=== PATIENT | male | born 1955 | race Caucasian/White ===

== ENCOUNTER 2018-06-07 16:10 | Emergency (ER) | payer BC, OTHER ==
[2018-06-07 16:46] VITALS: BP 148/78
--- NOTE | 2018-06-07 17:11 | UC ---
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 He presents here with concerns about his port. He had an injection trabectedin on May 25 and . About 1 week after his injection he noticed redness and swelling around the port site. He was quite tender there. He states that the redness and pain have been decreasing since their onset. He denies any fever or chills. He denies any lightheadedness or near syncope. The port has been in since 2014. - History of Current Complaint Chief Complaint: UCSkin Time Seen by Provider: 06/07/18 16:48 Stated Complaint: RIGHT SHOULDER PAIN Hx Obtained From: Patient Onset/Duration: Gradual Onset, Lasting Weeks - about one Timing: Constant Onset Severity: Moderate Current Severity: Mild Pain Intensity: 1 Pain Scale Used: 0-10 Numeric Character: Swelling, Redness, Painful Aggravating Factor(s): Touch Alleviating Factor(s): Cold Associated Signs & Symptoms: Positive: Tenderness - Allergy/Home Medications Allergies/Adverse Reactions: Allergies Allergy/AdvReac Type Severity Reaction Status Date / Time codeine Allergy Vomiting Verified 06/07/18 16:32 epinephrine Allergy See Comment Verified 06/07/18 16:32 seasonal allergies Allergy Eyes Uncoded 06/07/18 16:32 Itchy/Swollen/Red/Watery Home Medications: Home Medications Acetaminophen [Acetaminophen Extra Strength] 500 mg PO Q6H PRN 06/07/18 [ History Confirmed 06/07/18] Krill/Purdys-3/Dha/Epa/Lipids [Krill Oil 300 mg Softgel] 1 each PO BID 06/07/18 [ History Confirmed 06/07/18] Trabectedin* [Yondelis] 1 mg IV ONCE 06/07/18 [History Confirmed 06/07/18] Ubidecarenone [Co Q10] 200 mg PO BID 06/07/18 [History Confirmed 06/07/18] Review of Systems Constitutional: Negative Skin: Negative Eyes: Negative ENT: Negative Respiratory: Negative Cardiovascular: Negative Gastrointestinal: Negative Genitourinary: Negative Motor: Negative Neurovascular: Negative Musculoskeletal: Negative Neurological: Negative Psychological: Negative Is Patient Immunocompromised?: No All Other Systems Reviewed And Are Negative: Yes PMH/Surg Hx/FS Hx/Imm Hx Previously Healthy: Yes Cancer History: Other Other Cancer History: mixoid liposacroma - Surgical History Surgical History: Yes Surgery Procedure, Year, and Place: Right Foot Reconstruction - screws/skin grafts, 1991, [facility]. Tonsillectomy, 1960, [facility]. port placement. L upper thigh - Family History Known Family History: Positive: Hypertension - Social History Alcohol Use: Rare Substance Use Type: None Smoking Status (MU): Never Smoked Tobacco - Immunization History Most Recent Influenza Vaccination: current Most Recent Tetanus Shot: 04/21/2013 Physical Exam Triage Information Reviewed: Yes Appearance: Well-Appearing, No Pain Distress, Well-Nourished Vital Signs: Initial Vital Signs Temp 99.2 F 06/07/18 16:36 Pulse 71 06/07/18 16:36 Resp 16 06/07/18 16:36 BP 148/78 06/07/18 16:36 Pulse Ox 98 06/07/18 16:36 Eyes: Positive: Conjunctiva Clear ENT: Positive: Pharynx normal. Negative: Nasal drainage, TMs normal, Trismus, Muffled voice, Hoarse voice Neck: Positive: Supple, Nontender, No Lymphadenopathy Respiratory: Positive: Lungs clear, Normal breath sounds, No respiratory distress, No accessory muscle use Cardiovascular: Positive: RRR, No Murmur Abdomen Description: Positive: Nontender, No Organomegaly. Negative: CVA Tenderness (R), CVA Tenderness (L) Neurological: Positive: Alert Psychological Exam: Normal Skin Exam: Other - see image Course/Dx - Course Course Of Treatment: [facility] ) called at 5: [phone]. [phone]. Spoke to adoption worker RN- to ER for evaluation. D/W Angeline Gleason NP accepts - Diagnoses Provider Diagnoses: Port infection Discharge - Sign-Out/Discharge Documenting (check all that apply): Patient Departure - Discharge Plan Condition: Stable Disposition: TRANS HIGHER LVL OF CARE FAC Referrals: Mervin Coronel MD [Primary Care Provider] - - Billing Disposition and Condition Condition: STABLE Disposition: Trans Higher Lvl of Care Fac Images Front/Back of Body, Lg (Tyrrell): 1 - port 2 - 5x10 cm area of redness/slight induration/slightly tender/no fluctuance
== END 2018-06-07 18:24 | disposition short-term general hospital (02) ==
LOC: UCCORT 16:10
DX: T80.212A Local infection due to central venous catheter, initial encounter (principal); Z88.5 Allergy status to narcotic agent; Z88.8 Allergy status to other drugs, medicaments and biological substances; C49.9 Malignant neoplasm of connective and soft tissue, unspecified
CPT/HCPCS: 99202; G0463

== ENCOUNTER 2019-09-24 16:23 | Emergency (ER) | payer OTHER ==
[2019-09-24 16:46] VITALS: BP 120/84
--- NOTE | 2019-09-24 16:57 | UC ---
Throat Pain/Nasal Brain HPI - HPI Summary HPI Summary: 64-year-old male comes in with a chief complaint of sinus pressure and green rhinorrhea. Having symptoms for about a week. No fevers measured. Some postnasal drip. No complaint of any ear pain or shortness of breath or chest congestion. Has been using a vaporizer which does help some with the symptoms. - History of Current Complaint Chief Complaint: UCGeneralIllness Stated Complaint: SINUS COMPLAINT Time Seen by Provider: 09/24/19 16:31 Pain Intensity: 0 - Allergies/Home Medications Allergies/Adverse Reactions: Allergies Allergy/AdvReac Type Severity Reaction Status Date / Time codeine Allergy Vomiting Verified 09/24/19 16:36 epinephrine Allergy See Comment Verified 09/24/19 16:36 Iodinated Contrast Media Allergy redness Verified 09/24/19 16:38 and hot sensation iodine Allergy Rash Verified 09/24/19 16:38 seasonal allergies Allergy Eyes Uncoded 09/24/19 16:36 Itchy/Swollen/Red/Watery Home Medications: Home Medications Eribulin* [Halaven*] 1 mg IV SEE INSTRUCTIONS 09/24/19 [History Confirmed ] PMH/Surg Hx/FS Hx/Imm Hx Previously Healthy: Yes - abdominal sarcoma, on chemotherapy. - Surgical History Surgical History: Yes Surgery Procedure, Year, and Place: Right Foot Reconstruction - screws/skin grafts, 1991, [facility]. Tonsillectomy, 1960, [facility]. port placement. L upper thigh sx for cancer. Hernia repair--1994 - Family History Known Family History: Positive: Hypertension - Social History Alcohol Use: Rare Substance Use Type: None Smoking Status (MU): Never Smoked Tobacco - Immunization History Most Recent Influenza Vaccination: current Most Recent Tetanus Shot: 04/21/2013 Review of Systems All Other Systems Reviewed And Are Negative: Yes Constitutional: Positive: Other - See history present illness Skin: Positive: Negative Eyes: Positive: Negative ENT: Positive: Nasal Discharge, Sinus Congestion, Sinus Pain/Tenderness Respiratory: Positive: Negative Cardiovascular: Positive: Negative Gastrointestinal: Positive: Negative Motor: Positive: Negative Neurovascular: Positive: Negative Musculoskeletal: Positive: Negative Neurological: Positive: Negative Psychological: Positive: Negative Is Patient Immunocompromised?: Yes - on chemotherapy session October 02, 2019 Physical Exam Triage Information Reviewed: Yes Appearance: Well-Appearing, No Pain Distress, Well-Nourished Vital Signs: Initial Vital Signs Temp 98.2 F 09/24/19 16:43 Pulse 90 09/24/19 16:43 Resp 24 09/24/19 16:43 BP 120/84 09/24/19 16:43 Pulse Ox 97 09/24/19 16:43 Vital Signs Reviewed: Yes Eye Exam: Normal Eyes: Positive: Conjunctiva Clear ENT: Positive: Pharynx normal, Nasal congestion, TMs normal Neck: Positive: Supple Respiratory: Positive: Lungs clear, Normal breath sounds, No respiratory distress Cardiovascular: Positive: RRR Musculoskeletal: Positive: Strength Intact, ROM Intact Neurological: Positive: Alert, Muscle Tone Normal Psychological: Positive: Age Appropriate Behavior Skin Exam: Normal Throat Pain/Nasal Course/Dx - Course Course Of Treatment: DISCUSSED VIRAL VERSES BACTERIAL INFECTIONS AND THE ROLE OF ANTIBIOTICS. THE PATIENT PREFERS TO BE ON ANTIBIOTICS AT THIS TIME. - Differential Dx/Diagnosis Provider Diagnosis: Sinusitis Discharge ED - Sign-Out/Discharge Documenting (check all that apply): Patient Departure All imaging exams completed and their final reports reviewed: No Studies - Discharge Plan Condition: Stable Disposition: HOME Prescriptions: Amoxicillin/Clavulanate TAB* [Augmentin TAB 875*] 875 mg PO BID #20 tab Patient Education Materials: Sinusitis (ED) Referrals: Mervin Coronel MD [Primary Care Provider] - Additional Instructions: FOLLOW UP WITH YOUR DOCTOR IF NOT COMPLETELY IMPROVED. GET REEVALUATED SOONER IF NOT IMPROVING OR WORSE OR ANY QUESTIONS OR CONCERNS. - Billing Disposition and Condition Condition: STABLE Disposition: Home
--- OUTSIDE RECORDS SUMMARY | 2019-09-25 16:28 | XMS REPORT | Continuity of Care Document ---
:1955 External Reference #:[id number] Author Name Mervin Coronel (transmitted by agent of provider Laurie Whitehead) Address [address] [place] [address] Care Team Providers Name Role Phone Mervin Coronel MD - Internal Medicine Care Team Information Manager Billing Problems Description No Information Available Social History Type Date Description Comments Sex Unknown ETOH Use rarly uses Tobacco Use Start: Unknown Patient has never smoked Allergies, Adverse Reactions, Alerts Active Allergies Reaction Severity Comments Date Codeine GI distress 02/28/2018 Heparin 02/28/2018 Iodine Hives, Itching 12/18/2018 Medications Active Medications SIG Qnty Indications Ordering Provider Date Sildenafil Citrate 1 as directed 1 18tabs N52.9 Mervin Coronel 05/22/2019 hour before 100mg Tablets Patanol 2 drop eyes every 5ml Mervin Coronel 02/28/2018 0.1% Solution day as needed Azelastine HCL 2 sprays each 90ml Mervin Coronel 02/28/2018 (Nasal) nostril daily 0.15% Solution Vitamin D3 daily otc Unknown 2000Unit Capsules Coenzyme Q10 Unknown 100mg Capsules Vitamin C Unknown 1000mg Tablets Saw [place] daily Unknown 450mg Capsules Calcium 600 + Unknown Minerals [id number] Tablets Narciso Red Krill Oil 2 a day Unknown Immunizations Description No Information Available Vital Signs Date Vital Result Comment 08/29/2019 11:54am BP Systolic 142 mmHg BP Diastolic 90 mmHg Heart Rate 84 /min Respiratory Rate 16 /min Weight 216.00 lb 05/22/2019 10:29am BP Systolic 130 mmHg BP Diastolic 82 mmHg Heart Rate 68 /min Height 72 inches 6'0" Weight 216.00 lb BMI (Body Mass Index) 29.3 kg/m2 O2 % dC Oximetry 97 % Results Test Acquired Date Facility Test Result H/L Range Note General Health 08/13/2019 [facility] TSH 1.32 mIU/L Normal 0.40- 4.50 1 Panel [facility] [address] [place] [address] [phone] T4, Free 1.1 ng/dL Normal 0.8-1.8 CBC (Includes 08/13/2019 [facility] White 4.1 Thousand/uL Normal 3.8-10.8 Diff/PLT) 6 [facility] [place] [address] Count Red Blood Cell Count 4.77 Million/uL Normal 4.20-5.80 Hemoglobin 14.8 g/dL Normal 13.2-17.1 Hematocrit 45.0 % Normal 38.5-50.0 MCV 94.3 fL Normal 80.0-100.0 MCH 31.0 pg Normal 27.0-33.0 MCHC 32.9 g/dL Normal 32.0-36.0 RDW 12.3 % Normal 11.0-15.0 Platelet Count 198 Thousand/uL Normal 140-400 MPV 8.1 fL Normal 7.5-12.5 Absolute Neutrophils 2583 cells/uL Normal 0476-6944 Absolute Lymphocytes 1140 cells/uL Normal 850-3900 Absolute Monocytes 299 cells/uL Normal 200-950 Absolute Eosinophils 49 cells/uL Normal 15-500 Absolute Basophils 29 cells/uL Normal 0-200 Neutrophils 63 % Normal 38-80 Lymphocytes 27.8 % Normal 15-49 Monocytes 7.3 % Normal 0-13 Eosinophils 1.2 % Normal 0-8 Basophils 0.7 % Normal 0-2 Comprehensive Metabolic 08/13/2019 [facility] Glucose 90 mg/dL Normal 65-99 2 Panel [address] [place] [address] [phone] Urea Nitrogen (BUN) 17 mg/dL Normal 7-25 Creatinine 0.91 mg/dL Normal 0.70-1.25 3 eGFR Non-Afr. Lithuanian 89 mL/min/1.73m2 Normal > Or = 60 eGFR 103 mL/min/1.73m2 Normal > Or = 60 BUN/Creatinine Ratio NOT APPLICABLE (calc) 6-22 Sodium 139 mmol/L Normal 135-146 Potassium 4.2 mmol/L Normal 3.5-5.3 Chloride 104 mmol/L Normal 98-110 Carbon Dioxide 31 mmol/L Normal 20-32 Calcium 9.2 mg/dL Normal 8.6-10.3 Protein, Total 6.2 g/dL Normal 6.1-8.1 Albumin 4.1 g/dL Normal 3.6-5.1 Globulin 2.1 g/dL(calc) Normal 1.9-3.7 Albumin/Globulin Ratio 2.0 (calc) Normal 1.0-2.5 Bilirubin, Total 0.6 mg/dL Normal 0.2-1.2 Alkaline Phosphatase 55 U/L Normal 40-115 Ast 9 U/L Low 10-35 Alt 14 U/L Normal 9-46 Laboratory test 08/13/2019 [facility] Enhanced PDF SEE IMAGE finding [address] [place] [address] [id number] [phone] General Health 05/03/2019 Old DO Not Use [facility] TSH 1.34 mIU/L 0.40- 4 4 Panel [facility] [address] [place] [address] [phone] T4,Free 1.1 ng/dL 0.8-1.8 CBC W/ Diff & PLT 05/03/2019 Old DO Not Use [facility] WBC 4.9 thous/L 3.8-10.[address] [place] [address] [phone] RBC 4.55 mill/L 4.20-5.80 Hemoglobin 14.5 g/dL 13.2-17.1 Hematocrit 42.7 % 38.5-50.0 MCV 93.8 FL 80.0-100.0 MCH 31.9 pg 27.0-33.0 MCHC 34.0 g/dL 32.0-36.0 RDW 13.1 % 11.0-15.0 Platelet Count 177 thous/L 140-400 MPV 8.1 FL 7.5-12.5 Neutrophils,Absolute 3170 cells/L [phone] Bands,Absolute PENDING Metamyelocytes,Absolute PENDING Myelocytes,Absolute PENDING Promyelocytes,Absolute PENDING Lymphocytes,Absolute 1310 cells/L 850-3900 Monocytes,Absolute 370 cells/L 200-950 Eosinophils,Absolute 20 cells/L 15-500 Basophils,Absolute 20 cells/L 0-200 Blast Cells,Absolute PENDING Nucleated RBC,Absolute PENDING Total Neutrophils,% 64.8 % 40-75 Bands,% PENDING Metamyelocytes,% PENDING Myelocytes,% PENDING Promyelocytes,% PENDING Total Lymphocytes,% 26.8 % 12-47 Reactive Lymphocytes PENDING Monocytes,% 7.6 % 4-12 Eosinophils,% 0.4 % 0-4 Basophils,% 0.4 % 0-1 5 Blasts,% PENDING Nucleated RBC PENDING Comment PENDING CMP W/GFR 05/03/2019 Old DO Not Use [facility] Sodium 140 mmol/L 135-[address] [place] [address] [phone] Potassium 3.8 mmol/L 3.5-5.3 Chloride 106 mmol/L 98-110 Carbon Dioxide 28 mmol/L 20-32 6 Calcium 9.3 mg/dL 8.6-10.3 Alkaline Phosphatase 47 U/L 40-115 Ast 8 U/L Low 10-35 Alt 11 U/L 9-46 Bilirubin,Total 0.8 mg/dL 0.2-1.2 Glucose 92 mg/dL 65-99 7 Urea Nitrogen (BUN) 17 mg/dL 7-25 Creatinine 0.94 mg/dL 0.70-1.25 8 BUN/Creatinine Ratio 17.6 6-22 Protein,Total 6.4 g/dL 6.1-8.1 Albumin 4.2 g/dL 3.6-5.1 Globulin,Calculated 2.2 g/dL 1.9-3.7 A/G Ratio 1.9 1.0-2.5 Egfr Non-Afr. Lithuanian 85 ML/MIN/1.73M2 > Or = 60 Egfr 99 ML/MIN/1.73M2 > Or = 60 Lipid Panel 05/03/2019 Old DO Not Use [facility] Cholesterol 185 mg/dL < [address] [place] [address] [phone] HDL Cholesterol 61 mg/dL >40 Cholesterol/HDL Ratio 3.0 CALC <5.0 LDL Chol,Calculated 109 mg/dL High 0-100 9 Triglycerides 64 mg/dL <150 Non-HDL Cholesterol 125 mg/dL <130 10 Laboratory 05/03/2019 Old DO Not Use [facility] Vitamin 52 30-[address] D,25-Hydroxy,Total,Immunoassay NG/ML [place], [place] [id number] [phone] Testosterone,Total,MS 390 ng/dL 250-1100 12 PSA,Total 0.5 NG/ML < Or = 4.0 13 1 FASTING:YES FASTING: YES 2 Fasting reference interval 3 For patients >49 years of age, the reference limit for Creatinine is approximately 13% higher for people identified as -Lithuanian. 4 FASTING 5 Relative blood cell counts (%) should be compared with absolute cell counts (cells/mcL). Relative counts may not be clinically meaningful if the absolute count of one or more cell type is decreased. Reference ranges for relative cell counts derived from: A Manual of Laboratory and Diagnostics Tests, 9th Ed, [employer], 2015. Pediatric Reference Intervals, 7th Ed, [facility] [employer], 2011. 6 Reference range for high altitude clients: 18-30 mmol/L 7 GLUCOSE REFERENCE RANGE BASED ON FASTING SPECIMEN. 8 The upper reference limit for Creatinine is approximately 13% higher for people identified as -Lithuanian. 9 LDL-C is now calculated using the Estevan-Dove calculation, which is a validated novel method providing better accuracy than the Friedewald equation in the estimation of LDL-C. Estevan TORREZ et al.KAIT.2013;310(19):3634-7385 Desirable range <100 mg/dL for primary prevention; <70 mg/dL for patients with CHD or diabetic patients with >or= 2 CHD risk factors. For additional information, please refer to http://education.Ku.Televerde/faq/GIL832(This link is being provided for informational/educational purposes only.) 10 For patients with diabetes plus 1 major ASCVD risk factor, treating to a non-HDL-C goal of <100 mg/dL (LDL-C of <70 mg/ dL) is considered a therapeutic option. 11 Vitamin D Status 25-OH Vitamin D: Deficiency: <20 ng/mL Insufficiency: 20-29 ng/mL Optimal: > or = 30 ng/mL For 25-OH Vitamin D testing on patients on D2-supplementation and patients for whom quantitation of D2 and D3 fractions is required, the [facility] 25-OH Vit D, (D2,D3),LC/MS/MS is recommended: Order code 92601 (patients >2 yrs). 12 Men with clinically significant hypogonadal symptoms and testosterone values repeatedly in the range of the 200-300 ng/dL or less, may benefit from testosterone treatment after adequate risk and benefits counseling. For additional information, please refer to http://education.Connect.Televerde/faq/ RnsiaMvhkbntwmqkfOSSHHMCXO399 (This link is being provided for informational/ educational purposes only.) This test was developed and its analytical performance characteristics have been determined by [employer] [place], [place]. It has not been cleared or approved by the U.S. Food and Drug Administration. This assay has been validated pursuant to the CLIA regulations and is used for clinical purposes. 13 The total PSA value from this assay system is standardized against the WHO standard. The test result will be approximately 20% lower when compared to the equimolar-standardized total PSA (Emma Maxwell). Comparison of serial PSA results should be interpreted with this fact in mind. This test was performed using the Siemens chemiluminescent method. Values obtained from different assay methods be used interchangeably. PSA levels, regardless of value, should not be interpreted as absolute evidence of the presence or absence of disease. Procedures Date Code Description Status 05/04/2019 47886 Spirometry Graphic Record/Max Voluntary Vent Completed 05/04/2019 28416 EKG-Tracing & Report Completed 05/03/2019 89374 PVR-Atrerial Study Completed 05/03/2019 74895 Holter Monitor Office Completed 05/01/2019 67285 Non-Invcorrotid/Comp /Bilat Study Completed 04/30/2019 57312 Echocardiography Completed Medical Devices Description No Information Available Encounters Type Date Location Provider Dx Diagnosis Office Visit 05/22/2019 10:30a Main Office Mervin Coronel I34.0 Nonrheumatic mitral (valve) insufficiency I65.23 Occlusion and stenosis of bilateral carotid arteries I11.9 Hypertensive heart disease without heart failure G47.33 Obstructive sleep apnea (adult) (pediatric) E78.5 Hyperlipidemia, unspecified I49.3 Ventricular premature depolarization R73.01 Impaired fasting glucose N52.9 Male erectile dysfunction, unspecified 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, inc hip Office Visit 04/10/2019 11:15a Main Office Homer, Mervin L50.0 Allergic urticaria I11.9 Hypertensive heart disease without heart failure G47.33 Obstructive sleep apnea (adult) (pediatric) E78.5 Hyperlipidemia, unspecified I49.3 Ventricular premature depolarization I65.23 Occlusion and stenosis of bilateral carotid arteries I34.0 Nonrheumatic mitral (valve) insufficiency R73.01 Impaired fasting glucose N52.9 Male erectile dysfunction, unspecified L03.818 Cellulitis of other sites 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, inc hip E55.9 Vitamin D deficiency, unspecified I87.2 Venous insufficiency (chronic) (peripheral) R01.1 Cardiac murmur, unspecified E03.9 Hypothyroidism, unspecified Office Visit 03/14/2019 11:45a Main Office Homer, Mervin L50.0 Allergic urticaria I11.9 Hypertensive heart disease without heart failure G47.33 Obstructive sleep apnea (adult) (pediatric) E78.5 Hyperlipidemia, unspecified I49.3 Ventricular premature depolarization I65.23 Occlusion and stenosis of bilateral carotid arteries I34.0 Nonrheumatic mitral (valve) insufficiency R73.01 Impaired fasting glucose Assessments Date Code Description Provider 08/29/2019 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 08/29/2019 I34.0 Nonrheumatic mitral (valve) insufficiency [place]ans, Mervin 08/29/2019 I65.23 Occlusion and stenosis of bilateral carotid arteries Gauss , Mervin 08/29/2019 I11.9 Hypertensive heart disease without heart failure Gauss, Mervin 08/29/2019 G47.33 Obstructive sleep apnea (adult) (pediatric) Gauss, Mervin 08/29/2019 E78.5 Hyperlipidemia, unspecified Gauss, Mervin 08/29/2019 I49.3 Ventricular premature depolarization Gauss, Mervin 08/29/2019 R73.01 Impaired fasting glucose Gauss, Mervin 08/29/2019 N52.9 Male erectile dysfunction, unspecified Gauss, Mervin 05/22/2019 I34.0 Nonrheumatic mitral (valve) insufficiency Gauss, Mervin 05/22/2019 I65.23 Occlusion and stenosis of bilateral carotid arteries Gauss , [facility] 05/22/2019 I11.9 Hypertensive heart disease without heart failure Gauss, [facility] 05/22/2019 G47.33 Obstructive sleep apnea (adult) (pediatric) Gauss, [facility] 05/22/2019 E78.5 Hyperlipidemia, unspecified [facility], [facility] 05/22/2019 I49.3 Ventricular premature depolarization Gauss, [facility] 05/22/2019 R73.01 Impaired fasting glucose Couss, [facility] 05/22/2019 N52.9 Male erectile dysfunction, unspecified Gauss, [facility] 05/22/2019 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, including hip 05/04/2019 E78.2 Mixed hyperlipidemia [facility], [facility] 05/04/2019 R06.02 Shortness of breath [facility] 05/04/2019 J44.9 Chronic obstructive pulmonary disease, unspecified [facility] 05/04/2019 R05 Cough [facility], [facility] 05/03/2019 R00.2 Palpitations [facility] 05/03/2019 I73.9 Peripheral vascular disease, unspecified [facility], [facility] 05/01/2019 I65.23 Occlusion and stenosis of bilateral carotid arteries [facility] 04/30/2019 I34.0 Nonrheumatic mitral (valve) insufficiency [facility], [facility] 04/10/2019 L50.0 Allergic urticaria [facility], [facility] 04/10/2019 I11.9 Hypertensive heart disease without heart failure [facility] 04/10/2019 G47.33 Obstructive sleep apnea (adult) (pediatric) [facility] 04/10/[facility] E78.5 Hyperlipidemia, unspecified Gauss, [facility] 04/10/2019 I49.3 Ventricular premature depolarization Gauss, [facility] 04/10/2019 I65.23 Occlusion and stenosis of bilateral carotid arteries [facility] , [facility] 04/10/2019 I34.0 Nonrheumatic mitral (valve) insufficiency [facility], [facility] 04/10/2019 R73.01 Impaired fasting glucose [facility] 04/10/2019 N52.9 Male erectile dysfunction, unspecified Gauss, [facility] 04/10/2019 L03.818 Cellulitis of other sites Couss, [facility] 04/10/2019 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 Homer Mervin left lower limb, including hip 04/10/2019 E55.9 Vitamin D deficiency, unspecified Mervin Coronel 04/10/2019 I87.2 Venous insufficiency (chronic) (peripheral) Mervin Coronel 04/10/2019 R01.1 Cardiac murmur, unspecified Mervin Coronel 04/10/2019 E03.9 Hypothyroidism, unspecified Berry Coronell 03/14/2019 L50.0 Allergic urticaria Berry Coronell 03/14/2019 I11.9 Hypertensive heart disease without heart failure Berry Coronell 03/14/2019 G47.33 Obstructive sleep apnea (adult) (pediatric) Berry Coronell 03/14/2019 E78.5 Hyperlipidemia, unspecified Berry Coronell 03/14/2019 I49.3 Ventricular premature depolarization Berry Coronell 03/14/2019 I65.23 Occlusion and stenosis of bilateral carotid arteries Berry Coronell 03/14/2019 I34.0 Nonrheumatic mitral (valve) insufficiency Berry Coronell 03/14/2019 R73.01 Impaired fasting glucose Mervin Coronel Plan of Treatment Future Appointment(s):11/29/2019 12:00 pm - Mervin Coronel at [facility] [id number] - Berry CoronellC49.3 Malignant neoplasm of connective and soft tissue of mdqzdsP74.0 Nonrheumatic mitral (valve) insufficiencyComments:Issues of symptoms and aggravating lifestyle factors such as sleep, stress and dietary choices discussed. Symptoms and medication treatment and compliance and side effects discussed as needed. Need forSBE prophalaxis with antibiotics addressed and discussed where indicated. Follow up Echocardiogram as required.Discussed valvular pathology and need if indicated for antibiotic prophylaxis to prevent S.B.E. Medication compliance and side effects issues addressed. Follow up echocardiogram as warranted.Results of 2D echo and other testing reviewed and discussed with patient possible etiologies, progression prognosis and need for prophylactic antibiotics before dental procedures if warranted for S.B.E. prophylaxis. Routine follow up/ surveillance planned.I65.23 Occlusion and stenosis of bilateral carotid arteriesComments:Discussed role of life style choices in dietary fats and exercise plays on evolution of [place] disease and importance of controlling cholesterol. Medications role and side effects in disease progression prevention discussed and need for compliance with prescribed treatment. Follow up testing for progression such as ultrasound surveillance [id number] Hypertensive heart disease without heart failureComments:CONT. TO MONITOR BP, CONT. LOW SALT DIET Discussed lifestyle factors and role of diet and excerns incontrol of disease and treatment goals and targets. Medication side effects and compliance issues addressed as indicated. The importance of ongoing self monitoring of BP and the symptoms of complications such as TIA, CVA and AMI reviewed. The importance of reporting changes in between visits and side effects stressed. monitoring of patient provided BP checks and laboratory tests related to medicationreviewed. Discussed lifestyle factors and role of diet and excerns in control of disease and treatment goals and targets. Medication side effects and compliance issues addressed as indicated. The importance of ongoing self monitoring of BP and the symptoms of complications such as TIA, CVA and AMI reviewed. The importance of reporting changes in between visits and side effects stressed. monitoring of patient provided BP checks and laboratory tests related to medication reviewed.G47.33 Obstructive sleep apnea (adult) (pediatric)Comments:Continue CPAPWeight LossE78.5 Hyperlipidemia, unspecifiedComments:Counselled on role of diet and excersize and importance to keep compliance with medication if prescribed and side effects. The importance of routine monitoring of blood lipids and liver tests to managetreatment and avoid side effects were discussed. Usual follow up is 3 months for LFT and Lipid profile. Patient education including dietary guidelines and materials provided.I49.3 Ventricular premature depolarizationComments:Educated on risks and symptoms to be aware of and moniter. Dietary and substances like caffeine and alcohol effects emphasized. Routine monitering for progression or worsening in 1 year or sooner if symptoms warrent. If medication prescribed side effects and compliance discussed and need for pnahdzfjfaI33.01 Impaired fasting glucoseComments:diet and lxjbddgG43.9 Male erectile dysfunction, unspecified Functional Status Description No Information Available Mental Status Description No Information Available Referrals Refer to Reason for Referral Status Appt Date [facility] [facility]ON[facility] Closed 08/17/2019 [facility] [place] B[place] [address] [phone]
--- OUTSIDE RECORDS SUMMARY | 2019-09-25 16:28 | XMS REPORT | Continuity of Care Document ---
:1955 External Reference #:[id number] Author Name Mervin Coronel (transmitted by agent of provider Farida Vergara) Address [address] [place] [address] Care Team Providers Name Role Phone Mervin Coronel MD - Internal Medicine Care Team Information Pelt Grader Problems Description No Information Available Social History [...] Capsules Vitamin C Unknown 1000mg Tablets Saw [place] daily Unknown 450mg Capsules Calcium 600 + Unknown Minerals [id number]-[id number] Tablets Narciso Red Krill Oil 2 a [...] (Body Mass Index) 29.3 kg/m2 O2 % BldC Oximetry 97 % Results Test Acquired Date Facility Test Result H/L Range Note General Health 08/13/2019 [facility] TSH 1.32 mIU/L Normal 0.40- 4.50 1 Panel [facility] [address] [place] [address] [phone], Free 1.1 ng/dL Normal 0.8-1.8 CBC (Includes 08/13/2019 [facility] White 4.1 Thousand/uL Normal 3.8-10.8 Diff/PLT) 6 [facility] [place] [address] Count Red Blood Cell Count 4.77 Million/uL Normal 4.20-5.80 Hemoglobin 14.8 g/dL Normal 13.2-17.1 Hematocrit 45.0 % Normal 38.5-50.0 MCV 94.3 fL Normal 80.0-100.0 MCH 31.0 pg Normal 27.0-33.0 MCHC 32.9 g/dL Normal 32.0-36.0 RDW 12.3 % Normal 11.0-15.0 Platelet Count 198 Thousand/uL Normal 140-400 MPV 8.1 fL Normal 7.5-12.5 Absolute Neutrophils 2583 cells/uL Normal 1530-4310 Absolute Lymphocytes 1140 cells/uL Normal 850-3900 Absolute Monocytes 299 cells/uL Normal 200-950 Absolute Eosinophils 49 cells/uL Normal 15-500 Absolute Basophils 29 cells/uL Normal 0-200 Neutrophils 63 % Normal 38-80 Lymphocytes 27.8 % Normal 15-49 Monocytes 7.3 % Normal 0-13 Eosinophils 1.2 % Normal 0-8 Basophils 0.7 % Normal 0-2 Comprehensive Metabolic 08/13/2019 [facility] Glucose 90 mg/dL Normal 65-99 2 Panel [address] [place] [address] [phone] Urea Nitrogen (BUN) 17 mg/dL Normal 7-25 Creatinine 0.91 mg/dL Normal 0.70-1.25 3 eGFR Non-Afr. British 89 mL/min/1.73m2 Normal > Or = 60 [...] U/L Normal 9-46 Laboratory test 08/13/2019 [facility] Enhanced PDF SEE IMAGE finding [address] [place] [address] [id number] [phone] General Health 05/03/2019 Old DO Not Use [facility] TSH 1.34 mIU/L 0.40- 4 4 Panel [facility] [address] [place] [address] [phone] T4,Free 1.1 ng/dL 0.8-1.8 CBC W/ Diff & PLT 05/03/2019 Old DO Not Use [facility] WBC 4.9 thous/L 3.8-10.[address] [place] [address] [phone] RBC 4.55 mill/L 4.20-5.80 Hemoglobin 14.5 g/dL 13.2-17.1 Hematocrit 42.7 % 38.5-50.0 MCV 93.8 FL 80.0-100.0 MCH 31.9 pg 27.0-33.0 MCHC 34.0 g/dL 32.0-36.0 RDW 13.1 % 11.0-15.0 Platelet Count 177 thous/L 140-400 MPV 8.1 FL 7.5-12.5 Neutrophils,Absolute 3170 cells/L [phone] Bands,Absolute PENDING Metamyelocytes,Absolute PENDING Myelocytes,Absolute PENDING Promyelocytes,Absolute [...] [facility] Sodium 140 mmol/L 135-[address] [place] [address] [phone] Potassium 3.8 mmol/L 3.5-5.3 Chloride 106 mmol/L [...] 1.9-3.7 A/G Ratio 1.9 1.0-2.5 Egfr Non-Afr. British 85 ML/MIN/1.73M2 > Or = 60 Egfr 99 ML/MIN/1.73M2 > Or = 60 Lipid Panel 05/03/2019 Old DO Not Use [facility] Cholesterol 185 mg/dL < [address] [place] [address] [phone] HDL Cholesterol 61 mg/dL >40 Cholesterol/HDL Ratio 3.0 CALC <5.0 LDL Chol,Calculated 109 mg/dL High 0-100 9 Triglycerides 64 mg/dL <150 Non-HDL Cholesterol 125 mg/dL <130 10 Laboratory 05/03/2019 Old DO Not Use [facility] Vitamin 52 30-[address] D,25-Hydroxy,Total,Immunoassay NG/[place] [address] [phone] Testosterone,Total,MS 390 ng/dL 250-1100 12 PSA,Total 0.5 NG/ML < Or = 4.0 13 1 FASTING:YES FASTING: YES 2 Fasting reference interval 3 For patients >49 years of age, the reference limit for Creatinine is approximately 13% higher for people identified as -British. 4 FASTING 5 Relative blood cell counts (%) should be compared with absolute cell counts (cells/mcL). Relative counts may not be clinically meaningful if the absolute count of one or more cell type is decreased. Reference ranges for relative cell counts derived from: A Manual of Laboratory and Diagnostics Tests, 9th Ed, [employer], 2015. Pediatric Reference Intervals, 7th Ed, [facility] Press, 2011. 6 Reference range for high altitude clients: 18-30 mmol/L 7 GLUCOSE REFERENCE RANGE BASED ON FASTING SPECIMEN. 8 The upper reference limit for Creatinine is approximately 13% higher for people identified as -British. 9 LDL-C is now calculated using the Estevan-Dove calculation, which is a validated novel method providing better accuracy than the Friedewald equation in the estimation of LDL-C. Estevan TORREZ et al.KAIT.2013;310(19):8716-4741 Desirable range <100 mg/dL for primary prevention; <70 mg/dL for patients with CHD or diabetic patients with >or= 2 CHD risk factors. For additional information, please refer to http://education.[facility] [facility].[employer]/faq/VIK934(This link is being provided for informational/educational purposes [...] Vit D, (D2,D3),LC/MS/MS is recommended: Order code 53572 (patients >2 yrs). 12 Men with clinically significant hypogonadal symptoms and testosterone values repeatedly in the range of the 200-300 ng/dL or less, may benefit from testosterone treatment after adequate risk and benefits counseling. For additional information, please refer to http://education.[employer]/faq/ VqzkjJquoldksswbtGONQOHPAO573 (This link is being provided for informational/ educational purposes only.) This test was developed and its analytical performance characteristics have been determined by [employer] [place], [place]. It has not been cleared or approved by the U.S. Food and Drug Administration. This assay has been validated pursuant to the CLIA regulations and is used for clinical purposes. 13 The total PSA value from this assay system is standardized against the WHO standard. The test result will be approximately 20% lower when compared to the equimolar-standardized total PSA (Emma Maggie). Comparison of serial PSA results should be interpreted with this fact in mind. This test was performed using the Siemens chemiluminescent method. Values obtained from different assay methods be used interchangeably. PSA levels, regardless of value, should not be interpreted as absolute evidence of the presence or absence of disease. Procedures Date Code Description Status 05/04/2019 78807 Spirometry Graphic Record/Max Voluntary Vent Completed 05/04/2019 56185 EKG-Tracing & Report Completed 05/03/2019 09311 PVR-Atrerial Study Completed 05/03/2019 17639 Holter Monitor Office Completed 05/01/2019 43193 Non-Invcorrotid/Comp /Bilat Study Completed 04/30/2019 46665 Echocardiography Completed Medical Devices Description No Information [...] hip Office Visit 04/10/2019 11:15a Main Office Berry Coronell L50.0 Allergic urticaria I11.9 Hypertensive heart disease [...] unspecified Office Visit 03/14/2019 11:45a Main Office Berry Coronell L50.0 Allergic urticaria I11.9 Hypertensive heart disease without heart failure G47.33 Obstructive sleep apnea (adult) (pediatric) E78.5 Hyperlipidemia, unspecified I49.3 Ventricular premature depolarization I65.23 Occlusion and stenosis of bilateral carotid arteries I34.0 Nonrheumatic mitral (valve) insufficiency R73.01 Impaired fasting glucose Assessments Date Code Description Provider 05/22/2019 I34.0 [facility] I65.23 Occlusion and stenosis of bilateral carotid arteries [facility] , Mervin 05/22/2019 I11.9 Hypertensive heart disease without heart failure [facility] Mervin 05/22/2019 G47.33 Obstructive sleep apnea (adult) (pediatric) [facility], [facility] 05/22/2019 E78.5 Hyperlipidemia, unspecified [facility], [facility] 05/22/2019 I49.3 Ventricular premature depolarization [facility], [facility] 05/22/2019 R73.01 Impaired fasting glucose [facility] 05/22/2019 N52.9 Male erectile dysfunction, unspecified [facility], 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 05/04/2019 J44.9 [facility] pulmonary disease, [facility] 05/04/2019 R05 Cough Gauss, [facility] 05/03/2019 R00.2 Palpitations [facility], [facility] 05/03/2019 I73.9 Peripheral vascular disease, [facility] 05/01/2019 I65.23 Occlusion and stenosis of bilateral carotid arteries [facility] , [facility] 04/30/2019 I34.0 Nonrheumatic mitral (valve) insufficiency [facility] 04/10/2019 L50.0 Allergic urticaria Gauss, [facility] 04/10/2019 I11.9 Hypertensive heart disease without heart failure Meuss, [facility] 04/10/2019 G47.33 Obstructive sleep apnea (adult) (pediatric) [facility] 04/10/2019 E78.5 Hyperlipidemia, unspecified [facility] 04/10/2019 I49.[address] [facility] 04/10/2019 I65.23 Occlusion and stenosis of bilateral carotid arteries [facility] 04/10/2019 I34.0 Nonrheumatic mitral (valve) insufficiency [facility], [facility] 04/10/2019 R73.[address] [facility] 04/10/2019 N52.9 Male erectile dysfunction, unspecified [facility] 04/10/2019 L03.818 Cellulitis of other sites 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 04/10/2019 R01.1 Cardiac murmur, unspecified [facility] 04/10/2019 E03.9 [facility]othy[facility], [facility] 03/14/2019 L50.0 Allergic urticaria [facility], [facility] 03/14/2019 I11.9 Hypertensive heart disease without [facility] 03/14/2019 G47.33 Obstructive sleep apnea (adult) (pediatric) [facility] 03/14/2019 E78.5 Hyperlipidemia, unspecified Gauss, [facility] 03/14/2019 I49.3 Ventricular premature depolarization Mervin Coronel 03/14/2019 I65.23 Occlusion and stenosis of bilateral carotid arteries Mervin Coronel 03/14/2019 I34.0 Nonrheumatic mitral (valve) insufficiency Mervin Coronel 03/14/2019 R73.01 Impaired fasting glucose Mervin Coronel Plan of Treatment No Information Available Functional Status Description No Information Available Mental Status Description No Information Available Referrals Refer to Reason for Referral Status Appt Date [facility] COLONOSCOPY Closed 08/17/2019 [address] [facility] [address] [phone]
--- OUTSIDE RECORDS SUMMARY | 2019-09-25 16:28 | XMS REPORT | Continuity of Care Document ---
:1955 External Reference #:[id number] Author Name Mervin Coronel (transmitted by agent of provider Jessie Olivas) Address [address] [place] [address] Care Team Providers Name Role Phone Mervin Coronel MD - Internal Medicine Care Team Information Fitness Assistant [phone] Problems Description No Information Available Social History Type Date Description Comments Sex Unknown ETOH Use rarly uses Tobacco Use Start: Unknown Patient has never smoked Allergies, Adverse Reactions, Alerts Active Allergies Reaction Severity Comments Date Codeine GI distress 02/28/2018 Heparin 02/28/2018 Iodine Hives, Itching 12/18/2018 Medications Active Medications SIG Qnty Indications Ordering Provider Date Sildenafil Citrate 1 as directed 1 18tabs N52.9 Mervin Cornoel 05/22/2019 hour before 100mg Tablets Patanol 2 drop eyes every 5ml Mervin Coronel 02/28/2018 0.1% Solution day as needed Azelastine HCL 2 sprays each 90ml Mervin Coronel 02/28/2018 (Nasal) nostril daily 0.15% Solution Vitamin D3 daily otc Unknown 2000Unit Capsules Coenzyme Q10 Unknown 100mg Capsules Vitamin C Unknown 1000mg Tablets [place] daily Unknown 450mg Capsules Calcium 600 + Unknown Minerals [id number]-Csha Tablets Narciso Red Krill Oil 2 a [...] H/L Range Note General Health 08/13/2019 [facility] TSH 1.32 mIU/L Normal 0.40- 4.50 1 Panel [facility] [address] [place] [address] [phone] T4, Free 1.1 ng/dL Normal 0.8-1.8 CBC (Includes 08/13/2019 [facility] White 4.1 Thousand/uL Normal 3.8-10.8 Diff/PLT) 6 [place] [address] Count Red Blood Cell Count 4.77 Million/uL Normal 4.20-5.80 Hemoglobin 14.8 g/dL Normal 13.2-17.1 Hematocrit 45.0 % Normal 38.5-50.0 MCV 94.3 fL Normal 80.0-100.0 MCH 31.0 pg Normal 27.0-33.0 MCHC 32.9 g/dL Normal 32.0-36.0 RDW 12.3 % Normal 11.0-15.0 Platelet Count 198 Thousand/uL Normal 140-400 MPV 8.1 fL Normal 7.5-12.5 Absolute Neutrophils 2583 cells/uL Normal 0360-2283 Absolute Lymphocytes 1140 cells/uL Normal 850-3900 Absolute Monocytes 299 cells/uL Normal 200-950 Absolute Eosinophils 49 cells/uL Normal 15-500 Absolute Basophils 29 cells/uL Normal 0-200 Neutrophils 63 % Normal 38-80 Lymphocytes 27.8 % Normal 15-49 Monocytes 7.3 % Normal 0-13 Eosinophils 1.2 % Normal 0-8 Basophils 0.7 % Normal 0-2 Comprehensive Metabolic 08/13/2019 [facility] Glucose 90 mg/dL Normal 65-99 2 Panel [address] [place] [address] [phone] Urea Nitrogen (BUN) 17 mg/dL Normal 7-25 Creatinine 0.91 mg/dL Normal 0.70-1.25 3 eGFR Non-Afr. [place]ese 89 mL/min/1.73m2 Normal > Or = 60 [...] U/L Normal 9-46 Laboratory test 08/13/2019 [facility] Enhanced PDF SEE IMAGE finding [address] [place] [address] [id number] [phone] General Health 05/03/2019 Old DO Not Use [facility] TSH 1.34 mIU/L 0.40- 4 4 Panel [facility] [address] [place] [address] [phone] T4,Free 1.1 ng/dL 0.8-1.8 CBC W/ Diff & PLT 05/03/2019 Old DO Not Use [facility] WBC 4.9 thous/L 3.8-10.[address] [place] [address] [phone] RBC 4.55 mill/L 4.20-5.80 Hemoglobin 14.5 g/dL 13.2-17.1 Hematocrit 42.7 % 38.5-50.0 MCV 93.8 FL 80.0-100.0 MCH 31.9 pg 27.0-33.0 MCHC 34.0 g/dL 32.0-36.0 RDW 13.1 % 11.0-15.0 Platelet Count 177 thous/L 140-400 MPV 8.1 FL 7.5-12.5 Neutrophils,Absolute 3170 cells/L 1128-1548 Bands,Absolute PENDING Metamyelocytes,Absolute PENDING Myelocytes,Absolute PENDING Promyelocytes,Absolute [...] [facility] Sodium 140 mmol/L 135-[address] [place] [address] [phone] Potassium 3.8 mmol/L 3.5-5.3 Chloride 106 mmol/L [...] 1.9-3.7 A/G Ratio 1.9 1.0-2.5 Egfr Non-Afr. [place] 85 ML/MIN/1.73M2 > Or = 60 Egfr 99 ML/MIN/1.73M2 > Or = 60 Lipid Panel 05/03/2019 Old DO Not Use [facility] Cholesterol 185 mg/dL < [address] [place] [address] [phone] HDL Cholesterol 61 mg/dL >40 Cholesterol/HDL Ratio 3.0 CALC <5.0 LDL Chol,Calculated 109 mg/dL High 0-100 9 Triglycerides 64 mg/dL <150 Non-HDL Cholesterol 125 mg/dL <130 10 Laboratory 05/03/2019 Old DO Not Use [facility] Vitamin 52 30-[address] D,25-Hydroxy,Total,Immunoassay NG/ML [place], [place] [id number] [phone] Testosterone,Total,MS 390 ng/dL 250-1100 12 PSA,Total 0.5 NG/ML < Or = 4.0 13 1 FASTING:YES FASTING: YES 2 Fasting reference interval 3 For patients >49 years of age, the reference limit for Creatinine is approximately 13% higher for people identified as -Togolese. 4 FASTING 5 Relative blood cell counts (%) should be compared with absolute cell counts (cells/mcL). Relative counts may not be clinically meaningful if the absolute count of one or more cell type is decreased. Reference ranges for relative cell counts derived from: A Manual of Laboratory and Diagnostics Tests, 9th Ed, [employer], 2015. Pediatric Reference Intervals, 7th Ed, [facility] Press, 2011. 6 Reference range for high altitude clients: 18-30 mmol/L 7 GLUCOSE REFERENCE RANGE BASED ON FASTING SPECIMEN. 8 The upper reference limit for Creatinine is approximately 13% higher for people identified as -Togolese. 9 LDL-C is now calculated using the Estevan-Dove calculation, which is a validated novel method providing better accuracy than the Friedewald equation in the estimation of LDL-C. Estevan TORREZ et al.KAIT.2013;310(19):9121-9532 Desirable range <100 mg/dL for primary prevention; <70 mg/dL for patients with CHD or diabetic patients with >or= 2 CHD risk factors. For additional information, please refer to http://education.[employer].com.Innometrics/faq/DBG231(This link is being provided for informational/educational purposes [...] Vit D, (D2,D3),LC/MS/MS is recommended: Order code 97551 (patients >2 yrs). 12 Men with clinically significant hypogonadal symptoms and testosterone values repeatedly in the range of the 200-300 ng/dL or less, may benefit from testosterone treatment after adequate risk and benefits counseling. For additional information, please refer to http://education.OMGPOP.Innometrics/faq/ HdzywSgaelkqkshnxGPKCKRIUT624 (This link is being provided for informational/ educational purposes only.) This test was developed and its analytical performance characteristics have been determined by [employer] [place], [place]. It has not been cleared or approved by the U.S. Food and Drug Administration. This assay has been validated pursuant to the CLIA regulations and is used for clinical purposes. 13 The total PSA value from this assay system is standardized against the WHO standard. The test result will be approximately 20% lower when compared to the equimolar-standardized total PSA ([place]). Comparison of serial PSA results should be interpreted with this fact in mind. This test was performed using the Siemens chemiluminescent method. Values obtained from different assay methods be used interchangeably. PSA levels, regardless of value, should not be interpreted as absolute evidence of the presence or absence of disease. 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 I34.0 Nonrheumatic mitral (valve) insufficiency I65.23 Occlusion and stenosis of bilateral carotid arteries I11.9 Hypertensive heart disease without heart failure G47.33 Obstructive sleep apnea (adult) (pediatric) E78.5 Hyperlipidemia, unspecified I49.3 Ventricular premature depolarization R73.01 Impaired fasting glucose N52.9 Male erectile dysfunction, unspecified Office Visit 05/22/2019 10:30a Main Office Berry Coronell I34.0 Nonrheumatic mitral (valve) insufficiency I65.23 Occlusion [...] connective and soft tissue of [place] Mervin thorax 08/29/2019 I34.0 Nonrheumatic mitral (valve) insufficiency Mervin Coronel 08/29/2019 I65.23 Occlusion and stenosis of bilateral carotid arteries Mervin Coronel 08/29/2019 I11.9 Hypertensive heart disease without heart failure Mervin Coronel 08/29/2019 G47.33 Obstructive sleep apnea (adult) (pediatric) Mervin Coronel 08/29/2019 E78.5 Hyperlipidemia, unspecified [facility], [facility] 08/29/2019 I49.3 Ventricular premature depolarization [facility], [facility] 08/29/2019 R73.01 Impaired fasting glucose [facility], [facility] 08/29/2019 N52.9 Male erectile dysfunction, unspecified [facility], [facility] 05/22/2019 I34.0 Nonrheumatic mitral (valve) insufficiency [facility], [facility] 05/22/2019 I65.23 Occlusion and stenosis of bilateral carotid arteries [facility] , [facility] 05/22/2019 I11.9 Hypertensive heart disease without heart failure [facility], [facility] 05/22/2019 G47.33 Obstructive sleep apnea (adult) (pediatric) [facility], [facility] 05/22/2019 E78.5 Hyperlipidemia, unspecified [facility], [facility] 05/22/2019 I49.3 Ventricular premature depolarization [facility], [facility] 05/22/2019 R73.01 Impaired fasting glucose [facility], [facility] 05/22/2019 N52.9 Male erectile dysfunction, unspecified [facility], [facility] 05/22/2019 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, including hip 05/04/2019 E78.2 Mixed hyperlipidemia [facility], [facility] 05/04/2019 R06.02 Shortness of breath [facility], [facility] 05/04/2019 J44.9 Chronic obstructive pulmonary disease, unspecified [facility], [facility] 05/04/2019 R05 Cough [facility], [facility] 05/03/2019 R00.2 Palpitations [facility], [facility] 05/03/2019 I73.9 Peripheral vascular disease, unspecified [facility], [facility] 05/01/2019 I65.23 Occlusion and stenosis of bilateral carotid arteries [facility] , [facility] 04/30/2019 I34.0 Nonrheumatic mitral (valve) insufficiency [facility], [facility] 04/10/2019 L50.0 Allergic urticaria [facility], [facility] 04/10/2019 I11.9 Hypertensive heart disease without heart failure [facility], [facility] 04/10/2019 G47.33 Obstructive sleep apnea (adult) (pediatric) [facility], [facility] 04/10/2019 E78.5 Hyperlipidemia, unspecified [facility], [facility] 04/10/2019 I49.3 Ventricular premature depolarization [facility], [facility] 04/10/2019 I65.23 Occlusion and stenosis of bilateral carotid arteries [facility] 04/10/2019 I34.0 Nonrheumatic mitral (valve) insufficiency [facility] 04/10/2019 R73.01 Impaired fasting glucose [facility] 04/10/2019 N52.9 Male erectile dysfunction, unspecified [facility] 04/10/2019 L03.818 Cellulitis of other sites [facility] 04/10/2019 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 [place] M[facility]in left lower limb, including hip 04/10/2019 E55.9 Vitamin D deficiency, unspecified [facility] 04/10/2019 I87.2 Venous insufficiency (chronic) (peripheral) [facility] 04/10/2019 R01.1 Cardiac murmur, unspecified [facility] 04/10/2019 E03.9 Hypothyroidism, unspecified [facility] 03/14/2019 L50.0 All[facility]ticaria [facility] 03/14/2019 I11.9 Hypertensive heart disease without heart failure [facility] 03/14/2019 G47.33 Obstructive sleep apnea (adult) (pediatric) [facility] 03/14/2019 E78.5 Hyperlipidemia, unspecified [facility] 03/14/2019 I49.3 Ventricular premature depolarization [facility] 03/14/2019 I65.23 Occlusion and stenosis of bilateral carotid arteries [facility] 03/14/2019 I34.0 Nonrheumatic mitral (valve) insufficiency [facility] 03/14/2019 R73.01 Impaired fasting glucose Mervin Coronel Plan of Treatment Future Appointment(s):11/29/2019 12:00 pm - Mervin Coronel at Main Office Functional Status Description No Information Available Mental Status Description No Information Available Referrals Refer to Reason for Referral Status Appt Date [facility] COLONOS[facility] Closed 08/17/2019 [address] [facility] [place] [address] [phone]
== END 2019-09-24 17:03 | disposition home or self-care (01) ==
LOC: UCCORT 16:23
DX: J32.9 Chronic sinusitis, unspecified (principal); C76.2 Malignant neoplasm of abdomen; Z88.8 Allergy status to other drugs, medicaments and biological substances; Z88.5 Allergy status to narcotic agent; Z91.041 Radiographic dye allergy status; Z91.09 Other allergy status, other than to drugs and biological substances
CPT/HCPCS: 99212; G0463

== ENCOUNTER 2019-10-07 10:02 | Emergency (ER) | payer OTHER ==
[2019-10-07 10:33] VITALS: BP 130/82
[2019-10-07] MEDS ORDERED: Ibuprofen TAB* 400 MG PO ONE (11:19)
--- NOTE | 2019-10-07 11:50 | UC ---
Hand/Wrist HPI - HPI Summary HPI Summary: Pt presents with c/o right wrist pain s/p after use of electric drill and was holding on to drill at work when it "got out of control" and right wrist "over twisted" with sudden onset of pain. - History Of Current Complaint Chief Complaint: UCUpperExtremity Stated Complaint: RIGHT WRIST INJURY - WC Time Seen by Provider: 10/07/19 11:07 Hx Obtained From: Patient ?: No Onset/Duration: Sudden Onset, Still Present Severity Initially: Moderate Severity Currently: Moderate Pain Intensity: 7 Character Of Pain: Dull, Aching, Throbbing, Stiffness Aggravating Factor(s): Movement Alleviating Factor(s): Rest Associated Signs And Symptoms: Positive: Swelling Related History: Dominant Hand Right - Risk Factors Compartment Syndrome Risk Factors: Pain - Allergies/Home Medications Allergies/Adverse Reactions: Allergies Allergy/AdvReac Type Severity Reaction Status Date / Time codeine Allergy Vomiting Verified 09/24/19 16:36 epinephrine Allergy See Comment Verified 09/24/19 16:36 Iodinated Contrast Media Allergy redness Verified 09/24/19 16:38 and hot sensation iodine Allergy Rash Verified 09/24/19 16:38 seasonal allergies Allergy Eyes Uncoded 09/24/19 16:36 Itchy/Swollen/Red/Watery PMH/Surg Hx/FS Hx/Imm Hx Previously Healthy: Yes - currently under treatment for cancer - Surgical History Surgical History: Yes Surgery Procedure, Year, and Place: Right Foot Reconstruction - screws/skin grafts, 1991, [facility]. Tonsillectomy, 1960, [facility]. port placement. L upper thigh sx for cancer. Hernia repair--1994 - Family History Known Family History: Positive: Hypertension - Social History Occupation: Employed Full-time Lives: With Family Alcohol Use: Rare Substance Use Type: None Smoking Status (MU): Never Smoked Tobacco Have You Smoked in the Last Year: No - Immunization History Most Recent Influenza Vaccination: current Most Recent Tetanus Shot: 04/21/2013 Vaccination Up to Date: Yes Review of Systems All Other Systems Reviewed And Are Negative: Yes Constitutional: Positive: Negative Skin: Positive: Negative Eyes: Positive: Negative ENT: Positive: Negative Respiratory: Positive: Negative Cardiovascular: Positive: Negative Gastrointestinal: Positive: Negative Genitourinary: Positive: Negative Motor: Positive: Decreased ROM - right wrist Neurovascular: Positive: Negative Musculoskeletal: Positive: Arthralgia - right wrist, Decreased ROM - right wrist , Edema - right wrist, Myalgia - right wrist Neurological: Positive: Negative Psychological: Positive: Negative Is Patient Immunocompromised?: No Physical Exam Triage Information Reviewed: Yes Appearance: Pain Distress - with right wrist movement Vital Signs: Initial Vital Signs Temp 99.8 F 10/07/19 10:25 Pulse 65 10/07/19 10:25 Resp 18 10/07/19 10:25 BP 130/82 10/07/19 10:25 Pulse Ox 98 10/07/19 10:25 Vital Signs Reviewed: Yes Eye Exam: Normal ENT Exam: Normal Dental Exam: Normal Neck exam: Normal Respiratory Exam: Normal Musculoskeletal: Positive: Strength Limited @ - right wrist, ROM Limited @ - right wrist, Edema @ - right wrist Neurological Exam: Normal Psychological Exam: Normal Skin Exam: Normal Diagnostics - Radiology No standard instances Radiology Interpretation Completed By: Radiologist - positive for scaphoid fracture, non displaced Hand/Wrist Course/Dx - Course Course Of Treatment: Pt instructed to f/u with orthopedic provider as soon as possible. - Differential Dx/Diagnosis Differential Diagnosis/HQI/PQRI: Contusion, Dislocation, Fracture, Sprain, Strain Provider Diagnosis: Nondisplaced fracture of scaphoid of right wrist Discharge ED - Sign-Out/Discharge Documenting (check all that apply): Patient Departure All imaging exams completed and their final reports reviewed: Yes - Discharge Plan Condition: Stable Disposition: HOME Prescriptions: Ibuprofen TAB* [Motrin TAB* 800 MG] 800 mg PO Q8H PRN #21 tab PRN Reason: Pain - Mild Patient Education Materials: Wrist Fracture in Adults (ED) Forms: *Work Release Referrals: Sridhar Church MD [Medical Doctor] - As Soon As Possible Mervin Coronel MD [Primary Care Provider] - If Needed Rubens Godoy MD [Medical Doctor] - As Soon As Possible - Billing Disposition and Condition Condition: STABLE Disposition: Home
== END 2019-10-07 12:09 | disposition home or self-care (01) ==
LOC: UCCORT 10:02
DX: S62.001A Unspecified fracture of navicular [scaphoid] bone of right wrist, initial encounter for closed fracture (principal); C80.1 Malignant (primary) neoplasm, unspecified; Z88.5 Allergy status to narcotic agent; Z88.8 Allergy status to other drugs, medicaments and biological substances; Z91.09 Other allergy status, other than to drugs and biological substances; Z91.041 Radiographic dye allergy status; X50.1XXA Overexertion from prolonged static or awkward postures, initial encounter; Y92.9 Unspecified place or not applicable
CPT/HCPCS: 99212; A9270-GY; G0463